=== PATIENT | female | born 1975 | race Caucasian/White ===

== ENCOUNTER → 2017-08-07 | Outpatient (CLI) | payer BC ==
[2014-01-31 09:30] VITALS: BMI 40.2
[~2017-08-07] MED LIST: ACET500T68 PO; ALBU8.5H12 IH; CEPH250C37 PO; FLUC150T40 PO; HYDR-385 PO; HYDR115S2 PO; IBUP-56 PO; LACT1CAP6 PO; LEVO750T44 PO; MULT1TAB54 PO; NYST100040 PO; OMEP-114 PO
--- NOTE | 2017-08-08 12:24 | RADIOLOGY IMAGING REPORT ---
FACILITY: [facility] PATIENT NAME: ROSSY REDD : [id number] MR: [id number] V: [id number] EXAM DATE: ORDERING PHYSICIAN: NANCY RANDOLPH TECHNOLOGIST: Mary Elliott PROCEDURE:BILATERAL DIGITAL SCREENING MAMMOGRAM WITH CAD ASSISTED INTERPRETATION AND 3D BREAST TOMOSYNTHESIS. COMPARISON:None. This is patient's baseline mammogram. INDICATIONS:SCREENING. FINDINGS: Moderate amount of fibroglandular tissue is seen throughout the breasts. There is a focal area of slight increased density in the upper portion of the left breast zone 2 on the left MLO view for which spot compression view is recommended. There is also a small asymmetry in the lateral portion of the left breast in zone 2 on the left CC view for which spot compression view is recommended. DIAGNOSTIC CATEGORY 0--INCOMPLETE: NEED ADDITIONAL IMAGING EVALUATION. RECOMMENDATIONS: ADDITIONAL MAMMOGRAPHIC VIEWS REQUIRED: LEFT BREAST. IMPRESSION: BI-RADS 0: Additional views of the left breast recommended. Images were reviewed with R2CAD and 3D breast tomosynthesis. Dictated by: Melissa Estrada M.D. on 08/07/2017 at 17:07 Transcribed by: VIRGINIA on 08/07/2017 at 19:28 Approved by: Melissa Estrada M.D. on 08/08/2017 at 12:22 [facility]
== END ==
LOC: MAMO 01:54
PROVIDERS: ATTEND Obstetrics & Gynecology
DX: Z12.31 Encounter for screening mammogram for malignant neoplasm of breast (principal); R92.8 Other abnormal and inconclusive findings on diagnostic imaging of breast
CPT/HCPCS: 77063; 77067

== ENCOUNTER → 2017-08-17 | Outpatient (CLI) | payer BC ==
[2014-01-31 09:30] VITALS: BMI 40.2
--- NOTE | 2017-08-20 09:43 | RADIOLOGY IMAGING REPORT ---
[place] [facility] [place] NAME: ROSSY REDD : [id number] MR: [id number] V: [id number] EXAM DATE: [id number] ORDERING PHYSICIAN: NANCY RANDOLPH TECHNOLOGIST: Keira Mariano PROCEDURE:LEFT DIGITAL DIAGNOSTIC MAMMOGRAM WITH CAD AND 3D BREAST TOMOSYNTHESIS. COMPARISON:Prior mammograms dated 08/07/17. INDICATIONS:FURTHER EVALUATON FINDINGS: The patient returns for medial lateral view of the left breast and 3D breast tomosynthesis in the left CC and MLO projections. The area of increased density in the lateral portion of the left breast on the recent CC view appears compressible. There was a very tiny well circumscribed nodule in the upper outer quadrant of the left breast. The area of increased density in the upper portion of the left breast on the previous left MLO view appears to partially dissipate on the medial lateral view and partially compressed. Today's targeted left breast ultrasound revealed no sonographic abnormality. A six month followup left mammogram is recommended to document stability of the parenchymal pattern since there are no mammograms earlier than 08/07/17 available for comparison. DIAGNOSTIC CATEGORY 3--PROBABLY BENIGN FINDING. RECOMMENDATIONS: SIX MONTH FOLLOW-UP DIAGNOSTIC MAMMOGRAM: LEFT BREAST. IMPRESSION: Bi-RADS 3: A six month followup left mammogram is recommended unless clinical findings warrant more immediate attention. Dictated by: Melissa Estrada M.D. on 08/17/2017 at 14:45 Transcribed by: VIRGIN[place] on 08/19/2017 at 15:17 Approved by: Melissa Estrada M.D. on 08/20/2017 at 9:41 [facility]
--- NOTE | 2017-08-20 09:43 | RADIOLOGY IMAGING REPORT ---
[place] [facility] [place] NAME: ROSSY REDD : [id number] MR: [id number] V: [id number] EXAM DATE: ORDERING PHYSICIAN: NANCY RANDOLPH TECHNOLOGIST: Efren Eng PROCEDURE:LEFT BREAST ULTRASOUND COMPARISON:None. INDICATIONS:FURTHER EVALUATION FINDINGS: The left breast is imaged from the 12 to 3 o'clock position revealing no sonographic abnormality. A followup left breast mammogram is recommended in six months to document stability of the parenchymal pattern since there are no mammograms prior to 08/07/17 available for comparison. DIAGNOSTIC CATEGORY 3--PROBABLY BENIGN FINDING. RECOMMENDATIONS: SIX MONTH FOLLOW-UP DIAGNOSTIC MAMMOGRAM: LEFT BREAST. IMPRESSION: Bi-RADS 3: A six month followup left mammogram is recommended. Dictated by: Melissa Estrada M.D. on 08/17/2017 at 15:28 Transcribed by: VIR[place]IA on 08/19/2017 at 15:26 Approved by: Melissa Estrada M.D. on 08/20/2017 at 9:41 [facility]
== END ==
LOC: MAMO 01:46
PROVIDERS: ATTEND Obstetrics & Gynecology
DX: N63.21 Unspecified lump in the left breast, upper outer quadrant (principal)
CPT/HCPCS: 77065

== ENCOUNTER → 2018-01-31 | Outpatient (CLI) | payer BC ==
[2014-01-31 09:30] VITALS: BMI 40.2
[~2018-01-31] MED LIST changes: +ATOV1TAB17 PO; +ESCI20TA38 PO; +HYDR10TA3 PO
--- NOTE | 2018-01-31 15:44 | RADIOLOGY IMAGING REPORT ---
FACILITY: [facility] PATIENT NAME: ROSSY REDD : [id number] MR: [id number] V: [id number] EXAM DATE: [id number] ORDERING PHYSICIAN: NANCY RANDOLPH TECHNOLOGIST: Keira Mariano PROCEDURE:LEFT DIGITAL DIAGNOSTIC MAMMOGRAM WITH CAD ASSISTED INTERPRETATION & 3D TOMOSYNTHESIS COMPARISON:Prior mammogram 08/17/17 & 08/07/17. INDICATIONS:6 month follow up left breast FINDINGS: Left breast CC, Mediolateral, and Spot compression CC and MLO views are obtained. Mild asymmetry in the outer 1/2 of the Left breast, posterior 1/3 for depth only seen on the CC view, there is no other change with the Spot compression views, there is no suspicious mass seen. DIAGNOSTIC CATEGORY 2--BENIGN FINDING. RECOMMENDATIONS: ROUTINE MAMMOGRAM AND CLINICAL EVALUATION. This is discussed with patient. IMPRESSION: BIRADS 2: Benign finding. No evidence for malignancy. Dictated by: Jose Aj M.D. on 01/31/2018 at 14:43 Transcribed by: PARMJIT on 01/31/2018 at 14:58 Approved by: Jose Aj M.D. on 01/31/2018 at 15:44 [facility]
== END ==
LOC: MAMO 02:13
PROVIDERS: ATTEND Obstetrics & Gynecology
DX: Z09 Encounter for follow-up examination after completed treatment for conditions other than malignant neoplasm (principal)
CPT/HCPCS: 77061; 77065

== ENCOUNTER 2018-05-09 00:23 | Day surgery (SDC) | payer BC ==
[2014-01-31 09:30] VITALS: Ht 170.2 cm; Wt 108.9 kg
[~2018-05-09] VITALS: Ht 170.2 cm; Wt 108.9 kg
[~2018-05-09 00:23] MED LIST changes: +DEXL30CA5 PO; +LIDOCAINE/SOD BICARB 8.4% SYR ID ONE; +NORMOSOL R SOLN(*) 1000 ML BAG 1,000 ML IV PRN; +[UNRECOGNIZED DRUG - CODE] PO
[2018-05-09] MEDS ORDERED: NORMOSOL R SOLN(*) 1000 ML BAG 1,000 ML IV PRN (08:00)
[2018-05-09] MEDS ORDERED: LIDOCAINE/SOD BICARB 8.4% SYR ID ONE (08:00)
[2018-05-09 08:24] VITALS: BP 128/81
[2018-05-09] MEDS ORDERED: PROPOFOL EMUL(*) 10MG/ML 20 ML 20 ML ONE ×3 (08:30→09:31)
[2018-05-09 10:05] VITALS: BP 116/74
[2018-05-09 10:15] VITALS: BP 114/66
[2018-05-09 10:25] VITALS: BP 115/85
[2018-05-09 10:28] VITALS: BP 115/71
== END 2018-05-09 10:54 | disposition home or self-care (01) ==
LOC: OR 00:23
PROVIDERS: ATTEND Internal Medicine Gastroenterology
DX: K64.8 Other hemorrhoids (principal); L53.8 Other specified erythematous conditions; K44.9 Diaphragmatic hernia without obstruction or gangrene; K20.9 Esophagitis, unspecified; K29.70 Gastritis, unspecified, without bleeding; K29.80 Duodenitis without bleeding
CPT/HCPCS: 00811; 43239; 43249; 45380; 81025; 88305; 88313; 88344; C1726; J2704

== ENCOUNTER 2018-10-13 18:58 | Emergency (ER) | payer BC ==
[2014-01-31 09:30] VITALS: Wt 107.5 kg
[~2018-10-13 18:58] MED LIST changes: -LIDOCAINE/SOD BICARB 8.4% SYR ID ONE; -NORMOSOL R SOLN(*) 1000 ML BAG 1,000 ML IV PRN
--- NOTE | 2018-10-13 19:00 | ER Report ---
History and Physical Time Seen By MD: 18:59 HPI/ROS CHIEF COMPLAINT: Left upper quadrant pain, fever 2 days HISTORY OF PRESENT ILLNESS: 42-year-old female presents ambulatory to the ER complaining of fever for 2 days. She notes some left upper quadrant pain is quite severe. She's had no dysuria. She's had no flu symptoms. She's had no URI symptoms and no sore throat. She denies cough or shortness of breath. REVIEW OF SYSTEMS: Respiratory: No cough, no dyspnea. Cardiovascular: No chest pain, no palpitations. Gastrointestinal: As above Musculoskeletal: No back pain. Allergies: Coded Allergies: codeine (Verified Allergy, Intermediate, NAUSEA, ITCHING, 10/13/18) Home Meds Active Scripts Hydrocodone Bit/Acetaminophen (HYDROCODON-ACETAMINOPHEN 5-325) 1 Each Tablet, 1 EACH PO Q4-6H PRN for PAIN, #12 TAKE ONE TABLET BY MOUTH EVERY 4-6 HOURS NEEDED FOR PAIN Prov:SUNITHA BOOTH DO 10/13/18 Ondansetron Hcl (ZOFRAN) 4 Mg Tablet, 4 MG PO Q6H PRN for NAUSEA/VOMITING, #10 Prov:SUNITHA BOOTH DO 10/13/18 Metronidazole (FLAGYL) 500 Mg Tablet, 500 MG PO BID for infection, #14 TAB Prov:SUNITHA BOOTH DO 10/13/18 Ciprofloxacin Hcl 500 Mg Tab (CIPRO 500 MG TAB) 500 Mg Tablet, 500 MG PO BID for infection, #14 Prov:SUNITHA BOOTH DO 10/13/18 Reported Medications Hydroxyzine Hcl (HYDROXYZINE HCL) 10 Mg Tablet, 10 MG PO PRN 10/13/18 Escitalopram Oxalate (LEXAPRO) 20 Mg Tablet, 1 TAB PO QDAY, TAB 12/25/17 Discontinued Reported Medications Dexlansoprazole (DEXILANT) 30 Mg Pasquale., 30 MG PO QDAY for GERD 05/01/18 Inositol/T-Xehzs-Tvynzpwl (Ovasitol Powder Packet) 1 Each Powd.pack, PO QDAY 03/15/18 Reviewed Nurses Notes: Yes Old Medical Records Reviewed: Yes Hx Smoking: Yes (COUPLE CIGS. EVERY OTHER DAY- STARTED TEENAGER ON AND OFF ) Smoking Status: Former Smoker, Current: Some Days Smoker Exposure to Second Hand Smoke?: No Hx Substance Use Disorder: No Hx Alcohol Use: Yes Constitutional Vital Sign - Last 24 Hours 10/13/18 10/13/18 10/13/18 10/13/18 19:05 19:06 19:13 19:28 Temp 101.1 Pulse 94 84 87 Resp 20 B/P (MAP) 151/126 (134) 151/126 Pulse Ox 93 92 90 O2 Delivery Room Air 10/13/18 10/13/18 10/13/18 10/13/18 19:30 19:43 19:58 20:00 Pulse 80 81 B/P (MAP) 134/73 (93) 136/78 (97) Pulse Ox 92 92 10/13/18 10/13/18 10/13/18 10/13/18 20:43 20:48 21:03 21:18 Pulse 75 82 80 83 Pulse Ox 95 95 93 93 10/13/18 10/13/18 21:33 21:38 Pulse 82 78 Pulse Ox 89 92 Intake and Output 10/13/18 10/13/18 10/14/18 15:00 23:00 07:00 Intake Total 1100 ml Balance 1100 ml Physical Exam General Appearance: The patient is alert, has no immediate need for airway protection and no current signs of toxicity. Vital signs stable, fever 101.1 HEENT: Pupils equal and round no injection. TMs normal, oropharynx are redness or exudate, mucous. Membranes are moist Respiratory: Chest is non tender, lungs are clear to auscultation. Cardiac: regular rate and rhythm Gastrointestinal: Abdomen is soft, moderate tenderness in the left upper quadrant, positive guarding, no masses, bowel sounds normal. Musculoskeletal: Neck: Neck is supple and non tender. Extremities have full range of motion and are non tender. Skin: No rashes or lesions. DIFFERENTIAL DIAGNOSIS: After history and physical exam differential diagnosis was considered for abdominal pain including but not limited to appendicitis, cholecystitis, diverticulitis, gastritis and urinary tract infection. Medical Decision Making Data Points Result Diagram: 10/13/18192410/13/181924 Laboratory Hematology Test 10/13/18 19:02 10/13/18 19:14 10/13/18 19:25 Urine Color Colorless Urine Clarity Clear Urine pH 7.0 pH (4.8-9.5) Urine Specific [place] 1.001 Urine Protein Negative mg/dL (NEGATIVE) Urine Glucose (UA) Negative mg/dL (NEGATIVE) Urine Ketones Negative mg/dL (NEGATIVE) Urine Blood Small (NEGATIVE) Urine Nitrite Negative (NEGATIVE) Urine Bilirubin Negative (NEGATIVE) Urine Urobilinogen Negative mg/dL (0.2-1.9) Urine Leukocyte Esterase Negative (NEGATIVE) Urine RBC None /HPF (0-2/HPF) Urine WBC <1 /HPF (0-5/HPF) Urine Squamous Epithelial Cells Few /LPF (</=FEW) Urine Bacteria Negative /HPF (NONE-FEW) Urine Mucus None /HPF (NONE-FEW) Urine HCG, Qualitative Negative (NEGATIVE) Influenza Virus Type A (PCR) Negative (NEGATIVE) Influenza Virus Type B (PCR) Negative (NEGATIVE) Red Blood Count 4.90 M/uL (4.17-5.56) Mean Corpuscular Volume 87.0 fL (80.0-96.0) Mean Corpuscular Hemoglobin 29.5 pg (26.0-33.0) Mean Corpuscular Hemoglobin Concent 33.9 g/dL (32.0-36.0) Red Cell Distribution Width 14.0 % (11.5-14.5) Mean Platelet Volume 8.2 fL (7.2-11.1) Neutrophils (%) (Auto) 72.0 % (39.4-72.5) Lymphocytes (%) (Auto) 19.9 % (17.6-49.6) Monocytes (%) (Auto) 6.9 % (4.1-12.4) Eosinophils (%) (Auto) 0.8 % (0.4-6.7) Basophils (%) (Auto) 0.4 % (0.3-1.4) Nucleated RBC Relative Count (auto) 0.0 /100WBC Neutrophils # (Auto) 6.6 K/uL (2.0-7.4) Lymphocytes # (Auto) 1.8 K/uL (1.3-3.6) Monocytes # (Auto) 0.6 K/uL (0.3-1.0) Eosinophils # (Auto) 0.1 K/uL (0.0-0.5) Basophils # (Auto) 0.0 K/uL (0.0-0.1) Nucleated RBC Absolute Count (auto) 0.00 K/uL Sodium Level 137 mmol/L (137-145) Potassium Level 3.7 mmol/L (3.5-5.0) Chloride Level 103 mmol/L (98-107) Carbon Dioxide Level 25 mmol/L (22-31) Blood Urea Nitrogen 8 mg/dl (7-18) Creatinine 0.70 mg/dl (0.52-1.04) Glomerular Filtration Rate Calc > 60.0 Random Glucose 110 mg/dl (75-110) Lactate 0.9 mmol/L (0.7-2.1) Calcium Level 8.7 mg/dl (8.4-10.2) Total Bilirubin 1.0 mg/dl (0.2-1.3) Aspartate Amino Transf (AST/SGOT) 25 U/L (0-35) Alanine Aminotransferase (ALT/SGPT) 41 U/L (0-56) Alkaline Phosphatase 61 U/L (0-126) Total Protein 7.5 g/dl (6.3-8.2) Albumin 4.2 g/dl (3.5-5.0) Amylase Level 51 U/L (0-110) Lipase 60 U/L (23-300) Chemistry Test 10/13/18 19:02 10/13/18 19:14 10/13/18 19:25 Urine Color Colorless Urine Clarity Clear Urine pH 7.0 pH (4.8-9.5) Urine Specific [place] 1.001 Urine Protein Negative mg/dL (NEGATIVE) Urine Glucose (UA) Negative mg/dL (NEGATIVE) Urine Ketones Negative mg/dL (NEGATIVE) Urine Blood Small (NEGATIVE) Urine Nitrite Negative (NEGATIVE) Urine Bilirubin Negative (NEGATIVE) Urine Urobilinogen Negative mg/dL (0.2-1.9) Urine Leukocyte Esterase Negative (NEGATIVE) Urine RBC None /HPF (0-2/HPF) Urine WBC <1 /HPF (0-5/HPF) Urine Squamous Epithelial Cells Few /LPF (</=FEW) Urine Bacteria Negative /HPF (NONE-FEW) Urine Mucus None /HPF (NONE-FEW) Urine HCG, Qualitative Negative (NEGATIVE) Influenza Virus Type A (PCR) Negative (NEGATIVE) Influenza Virus Type B (PCR) Negative (NEGATIVE) White Blood Count 9.2 k/uL (4.5-11.0) Red Blood Count 4.90 M/uL (4.17-5.56) Hemoglobin 14.5 g/dL (12.0-16.0) Hematocrit 42.6 % (34.0-47.0) Mean Corpuscular Volume 87.0 fL (80.0-96.0) Mean Corpuscular Hemoglobin 29.5 pg (26.0-33.0) Mean Corpuscular Hemoglobin Concent 33.9 g/dL (32.0-36.0) Red Cell Distribution Width 14.0 % (11.5-14.5) Platelet Count 199 K/uL (150-450) Mean Platelet Volume 8.2 fL (7.2-11.1) Neutrophils (%) (Auto) 72.0 % (39.4-72.5) Lymphocytes (%) (Auto) 19.9 % (17.6-49.6) Monocytes (%) (Auto) 6.9 % (4.1-12.4) Eosinophils (%) (Auto) 0.8 % (0.4-6.7) Basophils (%) (Auto) 0.4 % (0.3-1.4) Nucleated RBC Relative Count (auto) 0.0 /100WBC Neutrophils # (Auto) 6.6 K/uL (2.0-7.4) Lymphocytes # (Auto) 1.8 K/uL (1.3-3.6) Monocytes # (Auto) 0.6 K/uL (0.3-1.0) Eosinophils # (Auto) 0.1 K/uL (0.0-0.5) Basophils # (Auto) 0.0 K/uL (0.0-0.1) Nucleated RBC Absolute Count (auto) 0.00 K/uL Glomerular Filtration Rate Calc > 60.0 Lactate 0.9 mmol/L (0.7-2.1) Calcium Level 8.7 mg/dl (8.4-10.2) Total Bilirubin 1.0 mg/dl (0.2-1.3) Aspartate Amino Transf (AST/SGOT) 25 U/L (0-35) Alanine Aminotransferase (ALT/SGPT) 41 U/L (0-56) Alkaline Phosphatase 61 U/L (0-126) Total Protein 7.5 g/dl (6.3-8.2) Albumin 4.2 g/dl (3.5-5.0) Amylase Level 51 U/L (0-110) Lipase 60 U/L (23-300) Urinalysis Test 10/13/18 19:02 Urine Color Colorless Urine Clarity Clear Urine pH 7.0 pH (4.8-9.5) Urine Specific [place] 1.001 Urine Protein Negative mg/dL (NEGATIVE) Urine Glucose (UA) Negative mg/dL (NEGATIVE) Urine Ketones Negative mg/dL (NEGATIVE) Urine Blood Small (NEGATIVE) Urine Nitrite Negative (NEGATIVE) Urine Bilirubin Negative (NEGATIVE) Urine Urobilinogen Negative mg/dL (0.2-1.9) Urine Leukocyte Esterase Negative (NEGATIVE) Urine RBC None /HPF (0-2/HPF) Urine WBC <1 /HPF (0-5/HPF) Urine Squamous Epithelial Cells Few /LPF (</=FEW) Urine Bacteria Negative /HPF (NONE-FEW) Urine Mucus None /HPF (NONE-FEW) Urine HCG, Qualitative Negative (NEGATIVE) EKG/Imaging Imaging Results: CT scan of the abdomen and pelvis with IV contrast was obtained. The results of the study are EXAMINATION: CT abdomen and pelvis with contrast COMPARISON: None. HISTORY: Left-sided abdominal pain and fever. PROCEDURE: Multiplanar contrast enhanced CT of the abdomen and pelvis with 75 mL intravenous Isovue 370. One of the following dose optimization techniques was utilized in the performance of this exam: Automated exposure control; adjustment of the mA and/or kV according to the patient's size; or use of an iterative reconstruction technique. Specific details can be referenced in the facility's radiology CT exam operational policy. FINDINGS: Visualized thorax: Negative. Liver: Negative. Gallbladder and biliary system: Negative Spleen: Negative. Pancreas: Negative. Adrenal glands: Negative. Kidneys and bladder: No renal mass or evidence of an obstructive uropathy. Urinary bladder is unremarkable. Vessels: Within normal limits. Bowel and mesentery: Stomach, small bowel, and appendix are unremarkable. Small amount of stool in the colon. Pancolonic mild diverticulosis. Mid descending co stone inflamed diverticula with colonic wall and pericolonic inflammation. No extra luminal fluid collection. There is a single tiny locule of gas along the margin of the inflamed diverticula is uncertain this gas is within the diverticulum or external to the diverticulum. Pelvic organs: Negative. Lymph nodes: No adenopathy. Free air/free fluid: Minimal simple appearing free fluid in the dependent pelvis is favored to be reactive or physiologic. No evidence of kentrell pneumoperitoneum. Abdominal wall and osseous structures: Tiny fat-containing umbilical hernia. Osseous structures are intact. IMPRESSION: Mid descending colon acute diverticulitis. As further described above there is a possible small locule of extraluminal gas and microperforation is a possibility. No evidence of abscess or pneumoperitoneum. The study was read by the radiologist. I viewed the images myself on the PACS system. ED Course/Re-evaluation Clinical Indication for ER IV: Hydration, IV Access ED Course Patient was admitted to an examination room. H&P was done. The differential diagnoses was considered. On clinical examination. Patient with fevers and left upper quadrant abdominal pain. Her urinalysis returns unremarkable. Her w aren blood cell count is mildly elevated. Patient continues to have tenderness and guarding in the left upper quadrant. A CT scan of the abdomen and pelvis is ordered. CT scan shows diverticulitis with possible microperforation. I offered the patient admission and IV antibiotics. Patient 2nd option was to go home on oral antibiotics. She is advised a low threshold return for any worsening. She is given 1 g of Invanz IV Cipro 500 mg by mouth, Flagyl 500 mg by mouth was discharged home on Zofran, Lortab and Cipro and Flagyl. Decision to Disposition Date: Oct 13, 2018 Decision to Disposition Time: 21:13 Depart Departure Latest Vital Signs Vital Signs Date Time Temp Pulse Resp B/P (MAP) Pulse Ox O2 Delivery O2 Flow Rate FiO2 10/13/18 21:38 78 92 10/13/18 20:00 136/78 (97) 10/13/18 19:06 101.1 20 Room Air Impression: Primary Impression: Diverticulitis Condition: Improved Disposition: HOME OR SELF-CARE Referrals: NILDA PAGAN DO (PCP) New Scripts Hydrocodone Bit/Acetaminophen (HYDROCODON-ACETAMINOPHEN 5-325) 1 Each Tablet 1 EACH PO Q4-6H PRN for PAIN, #12 TAKE ONE TABLET BY MOUTH EVERY 4-6 HOURS NEEDED FOR PAIN Prov: SUNITHA BOOTH DO 10/13/18 Ondansetron Hcl (ZOFRAN) 4 Mg Tablet 4 MG PO Q6H PRN for NAUSEA/VOMITING, #10 Prov: SUNITHA BOOTH DO 10/13/18 Metronidazole (FLAGYL) 500 Mg Tablet 500 MG PO BID for infection, #14 TAB Prov: SUNITHA BOOTH DO 10/13/18 Ciprofloxacin Hcl 500 Mg Tab (CIPRO 500 MG TAB) 500 Mg Tablet 500 MG PO BID for infection, #14 Prov: SUNITHA BOOTH DO 10/13/18 Patient Instructions: Clear Liquid Diet (ED), Diverticulitis (ED), Diverticulitis Diet (ED) Additional Instructions: Follow clear liquid diet for 24-48 hours, then advance to the brat diet, bananas, rice, applesauce and toast Have a low threshold to return to the ER for any worsening Follow-up with your primary care if unimproved in 3-5 days. SUNITHA BOOTH DO Oct 13, 2018 19:00
[2018-10-13] MEDS ORDERED: NS(*) 0.9% 1000 ML BAG 1,000 ML IV ONE (19:10)
[2018-10-13] MEDS ORDERED: HYDR10TA3 PO (19:12)
[2018-10-13 19:49] LABS: PLATELET COUNT, AUTOMATED 199 K/uL (150-450)
[2018-10-13 20:00] VITALS: BP 136/78
[2018-10-13] MEDS ORDERED: IOPAMIDOL 76% 150 ML INFUS BTL 150 ML ONE (20:37)
[2018-10-13] MEDS ORDERED: ERTAPENEM(*) 1 GM VIAL 1 GM in NS(*) 0.9% 100 ML ADDVANT BAG 100 ML IVPB ONE (21:05)
--- NOTE | 2018-10-13 21:06 | RADIOLOGY IMAGING REPORT ---
[place] [facility] [place] Juju Veliz : 1975 MR: [id number] V: [id number] EXAM DATE: ORDERING PHYSICIAN: SUNITHA BOOTH TECHNOLOGIST: Location: Patient: Juju Veliz : 1975 Visit/Account:[id number] Date of Sevice: 10/13/2018 EXAMINATION: CT abdomen and pelvis with contrast COMPARISON: None. HISTORY: Left-sided abdominal pain and fever. PROCEDURE: Multiplanar contrast enhanced CT of the abdomen and pelvis with 75 mL intravenous Isovue 3 70. One of the following dose optimization techniques was utilized in the performance of this exam: A utomated exposure control; adjustment of the mA and/or kV according to the patient's size; or use of an iterative reconstruction technique. Specific details can be referenced in the facility's radiolo gy CT exam operational policy. FINDINGS: Visualized thorax: Negative. Liver: Negative. Gallbladder and biliary system: Negative Spleen: Negative. Pancreas: Negative. Adrenal glands: Negative. Kidneys and bladder: No renal mass or evidence of an obstructive uropathy. Urinary bladder is unrema rkable. Vessels: Within normal limits. Bowel and mesentery: Stomach, small bowel, and appendix are unremarkable. Small amount of stool in th e colon. Pancolonic mild diverticulosis. Mid descending colon inflamed diverticula with colonic wall and pericolonic inflammation. No extra luminal fluid collection. There is a single tiny locule of gas along the margin of the inflamed diverticula is uncertain this gas is within the diverticulum or ext ernal to the diverticulum. Pelvic organs: Negative. Lymph nodes: No adenopathy. Free air/free fluid: Minimal simple appearing free fluid in the dependent pelvis is favored to be charly ctive or physiologic. No evidence of kentrell pneumoperitoneum. Abdominal wall and osseous structures: Tiny fat-containing umbilical hernia. Osseous structures are i ntact. IMPRESSION: Mid descending colon acute diverticulitis. As further described above there is a possible small locul e of extraluminal gas and microperforation is a possibility. No evidence of abscess or pneumoperitone um. Results were discussed with SUNITHA BOOTH at 10/13/2018 9:01 PM. Report Dictated By: Omar Murrell MD at 10/13/2018 8:52 PM Report E-Signed By: Omar Murrell MD at 10/13/2018 9:02 PM WSN:[id number]
[2018-10-13] MEDS ORDERED: LOR5/325 PO (21:16)
[2018-10-13] MEDS ORDERED: METR-1 PO (21:16)
[2018-10-13] MEDS ORDERED: ONDA4TAB97 PO (21:16)
[2018-10-13] MEDS ORDERED: CIPR-344 PO (21:16)
[2018-10-13] MEDS ORDERED: METRONIDAZOLE 500 MG TABLET PO ONE (21:20)
[2018-10-13] MEDS ORDERED: KETOROLAC 30 MG/ML VIAL IVP ONE (21:20)
[2018-10-13] MEDS ORDERED: ONDANSETRON 4 MG/2 ML VIAL IVP ONE (21:20)
[2018-10-13] MEDS ORDERED: CIPROFLOXACIN 500 MG TAB PO ONE (21:20)
[2018-10-13] MEDS ORDERED: ACET/HYDROC 5/325MG TH ER ONLY 2 TAB/BOTTLE PO ONE ×2 (21:20)
== END 2018-10-13 22:44 | disposition home or self-care (01) ==
LOC: ER 19:08
DX: K57.92 Diverticulitis of intestine, part unspecified, without perforation or abscess without bleeding (principal)
CPT/HCPCS: 36415; 74177; 81001; 81025; 82150; 83605; 83690; 85025; 87040; 87502; 96361; 96365; 96375; 99284; J1335; J1885; J2405; J7030; J7050; Q9967; 82040; 82247; 82310; 82374; 82435; 82565; 82947; 84075; 84132; 84155; 84295; 84450; 84460; 84520

== ENCOUNTER → 2018-12-11 | Outpatient (CLI) | payer BC ==
[2014-01-31 09:30] VITALS: BMI 40.2
[~2018-12-11] MED LIST changes: +CIPR-344 PO; +CLOB15OI16 TP; +LOR5/325 PO; +METR-1 PO; +ONDA4TAB97 PO
== END ==
LOC: LAB 15:24
PROVIDERS: ATTEND Nurse Practitioner Primary Care
DX: N89.8 Other specified noninflammatory disorders of vagina (principal)
CPT/HCPCS: 87210